=== PATIENT | female | born 1945 | race Caucasian/White ===

== ENCOUNTER 2017-08-11 01:34 | Inpatient (IN) | payer OTHER, MEDICARE ==
[~2017-08-11] VITALS: Ht 152.4 cm; Wt 59.1 kg
[~2017-08-11 01:34] MED LIST: ADVAIR DISKUS1 UNIT INH; ALLEGRA ALLERG180 M1 PO; ASPIRIN EC81 M1 PO; CALCIUM 600600 M1 PO; DOK100 MG PO; FLONASE ALLERG9.9 ML NASB; FOLIC ACID0.8 MG PO; GABAPENTIN600 M1 PO; GEODON80 MG PO; LIPITOR10 M1 PO; MELOXICAM15 M1 PO; MULTIVITAMIN1 TAB PO; NABUMETONE500 MG PO; PERCOCET 325 MG1 TA2 PO; PLAQUENIL200 M1 PO; SINGULAIR10 M1 PO; VITAMIN B6100 MG PO; VITAMIN D2000 I1 PO; WELLBUTRIN XL300 M2 PO
--- NOTE | 2017-08-11 11:55 | Operative Report ---
Operative/Inv Procedure Report Surgery Date: 08/11/17 Name of Procedure: right total hip arthroplasty Pre-Operative Diagnosis: primary right hip osteoarthritis Post-Operative Diagnosis: same Estimated Blood Loss: 200cc Surgeon/Ribbon Tier: Stella HORNER,Chaitanya Rob PA Anesthesia: general endotracheal tube Implants: Is Cedrick secure fit size 7 femoral stem, 127 neck angle, 52 acetabulum, 36+0 femoral head Drains: None Specimens: Femoral head, acetabular reamings Microbiology: Urine Complications: None Condition: stable Operative Indication: Patient is a 72-year-old woman with a long history of right hip pain. She was diagnosed with end-stage degenerative changes of the right hip. She did not respond to conservative measures and wished to proceed with total hip arthroplasty. Unfortunately, patient also had bilateral knee osteoarthritis which interfere with rehabilitation for her hip. Risks, benefits and expectations of the surgical management were discussed which included but were not limited to persistent hip pain, need for substance surgery, infection, DVT, injury to blood vessel or nerve, anesthesia risks, instability, leg length discrepancy. She did undergo left total hip arthroplasty 2010. Operative/Procedure Note Note: Patient was brought to the operating room and transferred to the operating table. Once under appropriate anesthesia the patient was placed into a left lateral decubitus position with right side up. All bony prominences well- padded. The right lower extremity was prepped and draped in standard fashion. Preoperative IV antibiotic's were given prophylactically. A standard lateral incision was made for anticipated superior approach to the hip. The incision was taken down sharply to the underlying fascia. Fascia gluteus gretchen was split. The hip was internally rotated placing the external rotators on tension. The piriformis was identified and reflected posteriorly was noted that the external rotators were completely adhesed to the posterior capsule and therefore there were reflected together posteriorly and tagged for later repair. The hip was dislocated. End-stage degenerative changes of the femoral head were noted. Femoral neck cut was then made based on preoperative templating and intraoperative measurements. I then exposed the acetabulum. Again end-stage degenerative changes of the acetabulum were noted. Anterior retractors and inferior retractors are placed. Remaining soft tissues were removed from the acetabular fossa. I then started reaming with a size 45 and advanced to a size 51 for anticipated insertion of a size 52 acetabular shell. I use a size 50 trial to confirm circumferential reaming. I was satisfied with this after copious irrigation the definitive size 52 Trident acetabular shell was impacted in place with excellent scratch fit. I then placed 2 screws in the safe zone in standard fashion. After irrigation of the acetabular shell I impacted the definitive liner to accept a 36 mm femoral head. The locking mechanism was confirmed. I then placed a lap sponge to protect the polyethylene while preparing the proximal femur. Femoral neck retractor and femoral elevator were placed exposing the proximal femur. A box osteotome was used to lateralize my insertion site. I then used hand reamers up to a size 7. I was satisfied with that fit. I then broached to a size 7. Again I was satisfied with the 7 broach. I left the last broach in place and did a trial off of that. I used a 132 neck angle first and then I also did a 127 neck angle. I was satisfied with the 127 also match patient's anatomy and match the left side which was done in 2010. I took the hip through range of motion. No sign of instability. No sign of the anterior stability with simultaneous extension and external rotation. No sign of posterior stability with simultaneous internal rotation adduction and flexion to greater than 90. I was satisfied with the anglican of leg lengths. I then dislocated the hip and then removed the trial components. Copious irrigation the femoral canal followed. I then impacted the definitive size 7 secure fit femoral stem in place excellent scratch fit. I then trialed dried the trunnion and then place a definitive 36+0 femoral head. Locking mechanism was confirmed. Hip was reduced. I was satisfied with the stability once again. I then started to repair the posterior structures. Every level of closure was followed by copious irrigation. The posterior capsule and external rotators were repaired. The fascia was repaired with interrupted #1 Vicryl suture. Subcutaneous tissues closed in 2 layers with 2-0 Vicryl and skin was closed with lisandro. Appropriate dressings were applied patient was awakened and taken to recovery room in good condition. No intraoperative complications. Blood loss approximately 200cc Discharge Disposition: PACU
[2017-08-11 14:00] VITALS: BP 117/67
--- NOTE | 2017-08-11 14:30 | RADIOLOGY REPORT ---
EXAMINATION: XR HIP, RIGHT CLINICAL INFORMATION: Replacement COMPARISON: None TECHNIQUE: Single view of the right hip. FINDINGS: 2 part prosthesis. Good visual result. IMPRESSION: 2 part prosthesis right hip. No acute finding.
--- NOTE | 2017-08-11 14:55 | Patient Discharge Instructions ---
Discharge Instructions General Discharge Information You were seen/treated for: Right hip pain related to unilateral primary osteoarthritis You had these procedures: Right total hip replacement Watch for these problems: Increasing pain despite the use of pain medication Increasing redness, warmth or swelling Drainage of any type from incision Inability to bear weight on operative leg Persistent nausea and vomiting Fever greater than 101.5 degrees Call Surgeon to remove: Antonio Do not soak the wound: Yes No bath, but you may shower: Yes Other wound care: Please keep wound clean and dry. No ointments or lotions of any type on or near incision at any time. No exceptions. Your dressing will be changed by your nurse on the second day after your surgery. Daily dry dressing changes are recommended each day thereafter. Do not soak your wound in a bath at any time until otherwise indicated by your surgeon. You may shower, please dry wound immediately after shower with a clean towel. Diet Continue normal diet: Yes Recommended Diet: Regular Activity Full Activity/No Limits: No Activity Self Limited: Yes Pounds, do NOT lift more than: 10 Activity Limited to: Weight bear as tolerated Additional ACTIVITY Info: Do not flex hip greater than 90 degress Do not internally rotate right leg Do not cross legs Abduction pillow when laying down Posterior hip precautions remain in place for a minimum of 3 months post op unless otherwise indicated by Dr. Douglas Acute Coronary Syndrome Inclusion Criteria At DC or during hospital stay patient has or had the following: ACS DIAGNOSIS No Discharge Core Measures Meds if any: Prescribed or Continued at Discharge Meds if any: NOT Prescribed or Continued at Discharge Congestive Heart Failure Inclusion Criteria At DC or during hospital stay patient has or had the following: CHF DIAGNOSIS No Discharge Core Measures Meds if any: Prescribed or Continued at Discharge Meds if any: NOT Prescribed or Continued at Discharge Cerebrovascular accident Inclusion Criteria At DC or during hospital stay patient has or had the following: CVA/TIA Diagnosis No Discharge Core Measures Meds if any: Prescribed or Continued at Discharge Meds if any: NOT Prescribed or Continued at Discharge Venous thromboembolism Inclusion Criteria VTE Diagnosis No VTE Type NONE VTE Confirmed by (Test) NONE Discharge Core Measures - Per Current guidelines, there needs to be overlap - treatment for the first 5 days of Warfarin therapy. - If discharged on Warfarin prior to 5 days of - overlap therapy, the patient will need to be - assessed for post discharge needs including - *Post discharge parental anticoagulation - *Warfarin and/or parental anticoagulation education - *Follow up date to check INR post discharge At least 5 days overlap therapy as Inpatient No Meds if any: Prescribed or Continued at Discharge Note: Overlap Therapy is Warfarin and Anticoagulant Meds if any: NOT Prescribed or Continued at Discharge
--- NOTE | 2017-08-11 14:58 | Surgical Discharge Summary ---
Visit Information Visit Dates Admission Date: 08/11/17 Discharge Date: 08/13/17 History of Present Illness Chief Complaint: Right hip pain related to unilateral primary osteoarthritis Medical History Blood Transfusion Hx: No Neurological: NONE EENT: NONE Cardiovascular: CAROTID ARTERY BLOCKAGE Respiratory: asthma Gastrointestinal: NONE Hepatic: NONE Renal: NONE Musculoskeletal: rheumatoid arthritis, spinal stenosis Psychiatric: bipolar disease Endocrine: NONE Blood Disorders: NONE Cancer(s): NONE ESCORT BLIND/Reproductive: NONE History of MRSA: Yes History of VRE: No History of CDIFF: No Isolation History: Contact Pneumonia Vaccine: 03/09/10 Surgical History Pertinent Surgical History: CERVICAL FUSION L HIP REPLACEMENT Psychosocial History Where Do You Live? Home Who Do You Live With? Spouse Services at Home: None What is Your Primary Language? South African Review of Systems: See H&P Hospital Course Course Attending Physician: Stella HORNER,[facility] Primary Care Physician: Carroll Caba MD Hospital Course: Patient was admitted to the hospital for an elective right total hip replacement. The procedure was tolerated well and patient was transferred to a general surgical floor. Diet was advanced and tolerated, and the patient voided spontaneously. The patient was evaluated and treated by physical therapy. At the time of hospital discharge, the vital signs were stable, neurovascular status was intact and pain was controlled with the use of oral pain medications. Complications: None Allergies: Coded Allergies: NO KNOWN ALLERGIES (NO) (NONE 08/11/17) Significant Procedures: Right total hip replacement on 08/11/17 Disposition Summary Disposition Principal Diagnosis: Right hip unilateral primary osteoarthritis Additional Diagnosis: None Discharge Disposition: home health services Discharge Instructions General Discharge Information Code Status: Full Code Patient's Diet: Regular, advance as tolerated Patient's Activity: WBAT, posterior hip precautions in place Follow-Up Instructions/Appts: Follow up with Dr. Douglas in 2 weeks from date of surgery Medications at Discharge Discharge Medications: Stop taking the following medications: Meloxicam (Meloxicam) 15 MG TABLET ORAL DAILY Continue taking these medications: Aspirin (Ecotrin*) 81 MG TABLET.DR 1 Tablet ORAL DAILY Atorvastatin Calcium (Lipitor) 10 MG TABLET 1 Tablet ORAL DAILY Bupropion HCl (Wellbutrin XL) 300 MG TAB.ER.24H 1 Tablet ORAL DAILY Fexofenadine HCl (Karen Allergy) 180 MG TABLET 1 Tablet ORAL DAILY Fluticasone Propionate (Flonase Allergy Relief) 50 MCG/ACTUATION SPRAY.SUSP 2 [place] Both sides of nose DAILY Gabapentin (Gabapentin) 600 MG TABLET 1 Tablet ORAL TWICE DAILY Hydroxychlorquine (Plaquenil) 200 MG TABLET 2 Tablet ORAL DAILY Montelukast Sodium (Singulair) 10 MG TABLET 1 Tablet ORAL DAILY Ziprasidone HCl (Geodon) 80 MG CAPSULE 1 Capsule ORAL TWICE DAILY Start taking the following new medications: Docusate Sodium (Colace) 100 MG CAPSULE 1 Capsule ORAL TWICE DAILY Qty = 14 No Refills Instructions: STOP TAKING IF YOU DEVELOP LOOSE STOOL/DIARRHEA Oxycodone HCl/Acetaminophen (Percocet 5-325 MG Tablet) 5 MG-325 MG TABLET 1-2 Tablet ORAL EVERY 4-6 HOURS as needed for postop pain Qty = 36 No Refills
--- NOTE | 2017-08-11 14:59 | Admission Core Measures ---
Acute Coronary Syndrome (CM) ACS Core Measures Acute Coronary Syndrome Diagnosis No Congestive Heart Failure (NEW) CHF Core Measures Congestive Heart Failure Diagnosis No Cerebrovascular Accident (NEW) CVA Core Measures CVA/TIA Diagnosis No Venous Thromboembolism VTE Core Vicenta (View Protocol) VTE Risk Factors Surgery No Mechanical VTE Prophylaxis d/t N/A MechProphylax Ordered No VTE Pharm Prophylaxis d/t NA PharmProphylax ordered Problem List As ranked by this Provider includes Assessment & Plan 1. Unilateral primary osteoarthritis, right hip HOME MEDS Home Med List Aspirin (Ecotrin*) 81 MG TABLET.DR 1 TAB PO DAILY HEART/BLOOD (Reported) Atorvastatin Calcium (Lipitor) 10 MG TABLET 1 TAB PO DAILY CHOLESTEROL ( Reported) Bupropion HCl (Wellbutrin XL) 300 MG TAB.ER.24H 1 TAB PO DAILY MENTAL HEALTH (Reported) Fexofenadine HCl (Karen Allergy) 180 MG TABLET 1 TAB PO DAILY ALLERGIES ( Reported) Fluticasone Propionate (Flonase Allergy Relief) 50 MCG/ACTUATION SPRAY.SUSP 2 SPRAY [place] DAILY ALLERGIES (Reported) Gabapentin 600 MG TABLET 1 TAB PO BID RA (Reported) Hydroxychlorquine (Plaquenil) 200 MG TABLET 2 TAB PO DAILY RA (Reported) Meloxicam 15 MG TABLET 1 TAB PO DAILY PAIN/INFLAMMATION (Reported) Montelukast Sodium (Singulair) 10 MG TABLET 1 TAB PO DAILY ASTHMA/ALLERGIES ( Reported) Ziprasidone HCl (Geodon) 80 MG CAPSULE 1 CAP PO BID MENTAL HEALTH (Reported)
[2017-08-11 16:03] VITALS: BP 102/54
--- NOTE | 2017-08-11 17:45 | PN- Orthopedic ---
Subjective Subjective: No acute post operative events reported. Patient tolerated procedure and is resting comfortably without complaints. Pain is well controlled presently. Denies chest pain, shortness of breath and difficulty breathing. Denies nausea and vomitting. Has a estrada cathter in place. Has yet to ambulate. Objective Vital Signs and I&Os Vital Signs Date Time Temp Pulse Resp B/P B/P Pulse O2 O2 Flow FiO2 Mean Ox Delivery Rate 08/11 1603 98.2 78 19 102/54 92 Nasal 1.0L Cannula 08/11 1422 100 Nasal 2.0L Cannula 08/11 1400 96.8 65 16 117/67 100 Nasal 2.0L Cannula Intake & Output 08/11 1600 08/11 0800 08/11 0000 08/10 1600 08/10 0800 08/10 0000 Intake Total Output Total Balance Patient 110 lb Weight Weight Reported by Patient Measurement Method Physical Exam: General: Alert and oriented x3, no acute distress Cardiac: RRR, s1s2 Pulm: CTA bilaterally ABD: Soft, non-tender, non-distended Extremities: Moves all extremities, distal sensation grossly intact. Skin warm and well pefused. Abrasions noted on right wrist, no erythema, no purulence, no swelling. DP pulses palpable bilaterally. Bilateral calves soft and non- tender. ALPS in place. Surgical site: Right hip, dressing dry and intact. Thigh compartment soft. Assessment/Plan Assessment/Plan This is a 72 year old female with a PMH significant for HLD, RA, and depression. On Geodon which she states is causing her to have a resting tremor. She is POD 0, s/p R THR Will add GI ppx: Prilosec daily DVT ppx: Eliquis 2.5 bid to start tomorrow, ALPS for mechanical dvt ppx ABX ppx: Vancomycin x 1 additional dose (750 mg due tonight) Activity: OOB, wbat, posterior hip precautions Pain regimen: Percocet po, IV morphine for breakthrough pain Estrada Catheter: to be removed tomorrow am IV fluids: To be dc'd tomorrow am Dressing: Keep clean and dry, first post op dressing change will take place POD 2. -Will discuss poc with Dr. Douglas Core Measures Venous Thromboembolism VTE Risk Factors Surgery No Mechanical VTE Prophylaxis d/t N/A MechProphylax Ordered No VTE Pharm Prophylaxis d/t NA PharmProphylax ordered
[2017-08-11 18:00] VITALS: BP 104/54
[2017-08-11 20:00] VITALS: BP 104/54
[2017-08-12] VITALS: BP 110/56
[2017-08-12 04:01] VITALS: BP 100/50
[2017-08-12 08:00] VITALS: BP 98/50
[2017-08-12 08:03] LABS: ABSOLUTE BASOPHIL COUNT 0 /CUMM (0.0-0.2); ABSOLUTE EOSINOPHIL COUNT 0 /CUMM (0.0-0.7); ABSOLUTE GRANULOCYTE CT 8.6 /CUMM (1.4-6.5); ABSOLUTE MONOCYTE COUNT 1.1 /CUMM (0.10-0.60); BASOPHIL % 0 % (0.0-2.0); EOSINOPHIL % 0 % (0-5); GRANULOCYTE % 80.3 % (42.2-75.2); HEMATOCRIT 32.1 % (37-47); MEAN CORPUSCULAR HGB 29.9 PG (27.0-31.0); MEAN CORPUSCULAR HGB CONC 33.1 G/DL (33.0-37.0); MEAN CORPUSCULAR VOLUME 90.1 FL (81.0-99.0); MEAN PLATELET VOLUME 8.6 FL (7.4-10.4); PLATELET COUNT 240 /CUMM (130-400); RBC DISTRIBUTION WIDTH 12.3 % (11.5-14.5); RED BLOOD CELL CT 3.57 /CUMM (4.20-5.40); WHITE BLOOD CELL COUNT 10.7 /CUMM (4.8-10.8)
--- NOTE | 2017-08-12 08:25 | PN- Orthopedic ---
See Addendum Subjective Subjective: No acute overnight events reported. Pt states that she did not sleep well but states that pain is tolerable at present. Denies chest pain, shortness of breath and difficulty breathing. Denies nasuea and vomitting. Has yet to amblulate. Estrada cathter still in place. Objective Vital Signs and I&Os Vital Signs Date Time Temp Pulse Resp B/P B/P Pulse O2 O2 Flow FiO2 Mean Ox Delivery Rate 08/12 0800 94 Nasal 1.0L Cannula 08/12 0401 97.5 58 20 100/50 94 Nasal 1.0L Cannula 08/12 0000 94 Nasal 1.0L Cannula 08/12 0000 97.5 69 20 110/56 95 Nasal 2.0L Cannula / 2000 98.1 78 19 104/54 94 Nasal 1.0L Cannula / 1800 98.2 78 19 104/54 93 Nasal 1.0L Cannula 08/11 1603 98.2 78 19 102/54 92 Nasal 1.0L Cannula 08/11 1422 100 Nasal 2.0L Cannula / 1400 96.8 65 16 117/67 100 Nasal 2.0L Cannula Intake & Output 08/12 1600 / 0800 03/06 0000 03/05 1600 08/11 0800 03/ 0000 Intake Total 1080 1080 Output Total 700 350 Balance 380 730 Intake, IV 600 600 Intake, Oral 480 480 Number 0 Bowel Movements Output, Urine 700 350 Patient 110 lb 110 lb Weight Weight Reported by Patient Measurement Method Physical Exam: General: Alert and oriented x3, no acute distress Cardiac: RRR, s1s2 Pulm: C T A bilaterally, non-labored respiratory effort, oxygen nc still in place Abdomen: Soft, non-tender, non-distended Extremities: Moves all extremties, distal sensation grossly intact. Skin warm and well perfused. DP pulses palpable bilaterally. Bilateral calves soft and non-tender. Abduction pillow in place. No evidence of rotational deformity. Assessment/Plan Assessment/Plan This is a 72 year old female, POD 1, s/p R THR -DC iv fluids -DC estrada now -OOB, wbat, posterior hip precautions -DVT ppx Eliquis to start today, ALPS continue -Diet as tolerated -Bowel regimen to include colace and miralax Will discuss poc with Dr. Komninakas Core Measures Venous Thromboembolism VTE Risk Factors Surgery No Mechanical VTE Prophylaxis d/t N/A MechProphylax Ordered No VTE Pharm Prophylaxis d/t NA PharmProphylax ordered
[2017-08-12 15:13] VITALS: BP 102/58
[2017-08-12 22:31] VITALS: BP 105/54
[2017-08-13 05:58] VITALS: BP 100/60
--- NOTE | 2017-08-13 07:30 | PN- Orthopedic ---
See Addendum Subjective Subjective: Patient reports postoperative hip pain, exacerbated by walking with PT yesterday and sitting in the chair yesterday for prolonged period. She is tolerating a diet and voiding spontanously. She offers no other complaints. She has not been cleared by PT yet. Denies chest pain, sob, fever, chills. Objective Vital Signs and I&Os Vital Signs Date Time Temp Pulse Resp B/P B/P Pulse O2 O2 Flow FiO2 Mean Ox Delivery Rate 08/13 0558 98.4 70 20 100/60 96 Nasal 1.0L Cannula 08/12 2231 98.2 81 18 105/54 93 Room Air 08/12 1513 97.8 60 16 102/58 98 Nasal 1.0L Cannula 08/12 1037 93 Room Air 08/12 0800 94 Nasal 1.0L Cannula 08/12 0800 97.9 67 18 98/50 95 Nasal 1.0L Cannula Intake & Output 08/13 0800 08/13 0000 / 1600 08/12 0800 08/12 0000 08/11 1600 Intake Total 116 190 8325 1080 Output Total 300 400 450 700 350 Balance -300 210 -50 380 730 Intake, IV 10 0 600 600 Intake, Oral 600 400 480 480 Number 0 0 Bowel Movements Output, Urine 300 400 450 700 350 Patient 130 lb 110 lb 110 lb Weight Weight Reported by Patient Measurement Method Physical Exam: Gen - awake an alert in NAD Ext - R hip dressing c/d/i, moves all extremities, sensation intact, decreased strength, pulses present, compartment soft, incision clsoed with lisandro healing well with no signs of infection, mild swelling, redressed with gauze and tape, alps in place, no edema or calf tenderness Current Medications: Current Medications Sig/Terrie Start time Last Medication Dose Route Stop Time Status Admin Apixaban 2.5 MG BID 08/12 999 AC 08/12 PO 2048 Atorvastatin Calcium 10 MG DAILY 08/12 999 AC 08/12 PO 928 Bupropion HCl 300 MG DAILY 08/12 999 AC 08/12 PO 928 Celecoxib 400 MG DAILY 08/12 999 AC 08/12 PO 929 Dextrose/Lactated 1,000 ML Q13H 08/11 1415 DC 08/12 Ringer's IV 0235 Docusate Sodium 100 MG BID 08/11 2199 AC 08/12 PO 2048 Gabapentin 600 MG BID 08/11 2199 AC 08/12 PO 204 Hydroxychloroquine 400 MG DAILY 08/12 1000 AC 08/12 Sulfate PO 09 Montelukast Sodium 10 MG DAILY 08/12 1000 AC 08/12 PO 09 Morphine Sulfate 2 MG Q3P PRN 08/11 1745 AC IV Nicotine 14 MG DAILY 08/12 1000 AC 08/12 TOP 0731 Omeprazole 40 MG DAILY AC 08/12 0700 AC 08/13 PO 0659 Ondansetron HCl 4 MG Q6P PRN 08/11 1415 AC IV Oxycodone/ 1 TAB Q4P PRN 08/11 1415 AC 08/12 Acetaminophen PO 1548 Oxycodone/ 2 TAB Q4P PRN 08/11 141 AC 08/12 Acetaminophen PO 205 Polyethylene Glycol 17 GM DAILY 08/12 1000 AC 08/12 PO 09 Senna/Docusate Sodium 2 TAB AT BEDTIME NEED.. 08/11 141 AC PO Ziprasidone 80 MG BID 08/11 2199 AC 08/12 PO 2048 Results Last 48 Hours of Labs: Laboratory Tests 08/12 702 Chemistry Sodium (137 - 145 mmol/L) 140 Potassium (3.5 - 5.1 mmol/L) 3.8 Chloride (98 - 107 mmol/L) 103 Carbon Dioxide (22 - 30 mmol/L) 29 Anion Gap (5 - 16) 7 BUN (7 - 17 mg/dL) 9 Creatinine (0.5 - 1.0 mg/dL) 0.5 Estimated GFR (>60 ml/min) > 60 BUN/Creatinine Ratio (7 - 25 %) 18.0 Hematology CBC w Diff NO MAN DIFF REQ WBC (4.8 - 10.8 /CUMM) 10.7 RBC (4.20 - 5.40 /CUMM) 3.57 L Hgb (12.0 - 16.0 G/DL) 10.6 L Hct (37 - 47 %) 32.1 L MCV (81.0 - 99.0 FL) 90.1 MCH (27.0 - 31.0 PG) 29.9 MCHC (33.0 - 37.0 G/DL) 33.1 RDW (11.5 - 14.5 %) 12.3 Plt Count (130 - 400 /CUMM) 240 MPV (7.4 - 10.4 FL) 8.6 Gran % (42.2 - 75.2 %) 80.3 H Lymphocytes % (20.5 - 51.1 %) 9.3 L Monocytes % (1.7 - 9.3 %) 10.4 H Eosinophils % (0 - 5 %) 0 Basophils % (0.0 - 2.0 %) 0 Absolute Granulocytes (1.4 - 6.5 /CUMM) 8.6 H Absolute Lymphocytes (1.2 - 3.4 /CUMM) 1.0 L Absolute Monocytes (0.10 - 0.60 /CUMM) 1.1 H Absolute Eosinophils (0.0 - 0.7 /CUMM) 0 Absolute Basophils (0.0 - 0.2 /CUMM) 0 Assessment/Plan Assessment/Plan 72 F POD 2 s/p R THR who is recovering well, not cleared by PT yet Reg diet Pain regimen, wean IV OOB w/ PT, WBAT Posterior hip precautions Eliquis 2.5 bid for dvt ppx Bowel regimen Home meds Anticipate d/c within 24-48 hours Will d/w Dr. Douglas Core Measures Venous Thromboembolism VTE Risk Factors Surgery No Mechanical VTE Prophylaxis d/t N/A MechProphylax Ordered No VTE Pharm Prophylaxis d/t NA PharmProphylax ordered
[2017-08-13] MEDS ORDERED: PERCOCET 5-3251 EACH PO (09:12)
[2017-08-13] MEDS ORDERED: COLACE100 M1 PO (09:12)
[2017-08-13] MEDS ORDERED: ELIQUIS2.5 M1 PO (09:24)
== END 2017-08-13 11:48 | disposition home health service (06) | DRG 470 ==
LOC: 2NB 01:34 → SDA 01:34 → ENRESERV 12:46 → ENTRNSPT 13:24 → EDTRNSPT 13:32 → EDTRNSPTSTS 13:32 → 2NB 13:37 → CMPTRNSPT 13:43 → ENPENDDIS 08-13 09:09 → ENTRNSPT 08-13 11:25 → EDTRNSPTSTS 08-13 11:38 → EDTRNSPT 08-13 11:38 → CMPTRNSPT 08-13 11:39 → 2NB 08-13 11:48
PROVIDERS: Physician Assistant Surgical
PROC: 0SR902Z Replacement of Right Hip Joint with Metal on Polyethylene Synthetic Substitute, Open Approach (ICD-10-PCS; principal; 2017-08-11)
DX: M16.11 Unilateral primary osteoarthritis, right hip (principal); I65.29 Occlusion and stenosis of unspecified carotid artery; M06.9 Rheumatoid arthritis, unspecified; E78.5 Hyperlipidemia, unspecified; F31.9 Bipolar disorder, unspecified; J45.909 Unspecified asthma, uncomplicated; F17.210 Nicotine dependence, cigarettes, uncomplicated; Z79.82 Long term (current) use of aspirin; K21.9 Gastro-esophageal reflux disease without esophagitis; G47.419 Narcolepsy without cataplexy; Z86.14 Personal history of Methicillin resistant Staphylococcus aureus infection; Z79.51 Long term (current) use of inhaled steroids; M48.00 Spinal stenosis, site unspecified; Z98.1 Arthrodesis status; Z96.642 Presence of left artificial hip joint
CPT/HCPCS: 2NBP; 36592; 73502-RT; 82436; 87086; 97110-GO; 97116-GO; 97161-GP; 97530-GO; J1100; J2405; J3370; J7040

== ENCOUNTER 2017-09-20 | Emergency (ER) | payer OTHER, MEDICARE ==
[~2017-09-20] VITALS: Ht 152.4 cm; Wt 49.9 kg
[~2017-09-20] MED LIST changes: +COLACE100 M1 PO; +ELIQUIS2.5 M1 PO; +PERCOCET 5-3251 EACH PO
[2017-09-20 01:28] VITALS: BP 110/68
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
== END 2017-09-20 03:27 ==
LOC: ERH
DX: S16.1XXA Strain of muscle, fascia and tendon at neck level, initial encounter (principal); M25.551 Pain in right hip; V49.50XA Passenger injured in collision with unspecified motor vehicles in traffic accident, initial encounter; Y92.9 Unspecified place or not applicable
CPT/HCPCS: 72100; 73502-RT